=== PATIENT | female | born 1990 | race Caucasian/White ===

== ENCOUNTER 2020-03-02 08:51 | Emergency (ER) | payer SELFPAY ==
[2020-03-02 10:20] LABS: ABSOLUTE BASOPHILS # (AUTO) 0.1 10^3/uL (0.0-0.2); ABSOLUTE EOSINOPHILS # (AUTO) 0.2 10^3/uL (0.0-0.6); ABSOLUTE LYMPHOCYTES (AUTO) 2.2 10^3/uL (0.5-4.7); ABSOLUTE MONOCYTES (AUTO) 0.7 10^3/uL (0.1-1.4); ABSOLUTE NEUT (AUTO) 7.8 10^3/uL (1.7-8.2); BASOPHILS % (AUTO) 0.9 % (0-2); EOSINOPHILS % (AUTO) 1.7 % (0-6); HEMATOCRIT 47.6 % (36.0-47.0); HEMOGLOBIN 16.3 g/dL (12.0-15.5); MEAN CORPUSCULAR HEMOGLOBIN 31.8 pg (27.0-33.4); MEAN CORPUSCULAR HGB CONC 34.3 g/dL (32.0-36.0); MEAN CORPUSCULAR VOLUME 93 fl (80-97); MONOCYTES % (AUTO) 6.3 % (3-13); PLATELET COUNT 277 10^3/uL (150-450); RED BLOOD COUNT 5.13 10^6/uL (3.72-5.28); RED CELL DISTRIBUTION WIDTH 14.1 % (11.5-14.0); SEGMENTED NEUTROPHILS % (AUTO) 71.1 % (42-78); TOTAL CELLS COUNTED % (AUTO) 100 %; WHITE BLOOD COUNT 10.9 10^3/uL (4.0-10.5)
[2020-03-02 10:27] LABS: APPEARANCE,URINE SLIGHTLY-CLOUDY; BILIRUBIN,URINE NEGATIVE (NEGATIVE); COLOR,URINE YELLOW; GLUCOSE, URINE NEGATIVE (NEGATIVE); KETONES,URINE NEGATIVE (NEGATIVE); LEUKOCYTE ESTERASE,URINE MODERATE (NEGATIVE); NITRITE,URINE NEGATIVE (NEGATIVE); PROTEIN,URINE NEGATIVE (NEGATIVE); URINE SPECIFIC GRAVITY 1.025; UROBILINOGEN,URINE NEGATIVE mg/dL (<2.0)
[2020-03-02 10:34] LABS: ALBUMIN 5.1 g/dL (3.5-5.0); ALKALINE PHOSPHATASE 105 U/L (38-126); ANION GAP 13 (5-19); ASPARTATE AMINO TRANSFERASE 27 U/L (14-36); BILIRUBIN,TOTAL 0.7 mg/dL (0.2-1.3); BLOOD UREA NITROGEN 13 mg/dL (7-20); CALCIUM 10.3 mg/dL (8.4-10.2); CARBON DIOXIDE 24 mmol/L (22-30); CHLORIDE 102 mmol/L (98-107); GLUCOSE 122 mg/dL (75-110); POTASSIUM 4.5 mmol/L (3.6-5.0); TOTAL PROTEIN 8.6 g/dL (6.3-8.2)
[2020-03-02] MEDS ORDERED: DICYCLOMINE HCL INJ 20 MG/2 ML AMPULE IM ONE (10:43)
[2020-03-02] MEDS ORDERED: ONDANSETRON HCL INJ/PF 4 MG/2 ML SDV IV ONE (10:43)
[2020-03-02] MEDS ORDERED: NORMAL SALINE 1000 ML 1,000 ML IV ONE (10:43)
[2020-03-02] MEDS ORDERED: CLONIDINE HCL 0.1 MG TABLET PO ONE ×2 (10:44→11:11)
[2020-03-02] MEDS ORDERED: KETOROLAC TROMETHAMINE INJ/PF 30 MG/1 ML SDV IV ONE (11:14)
[2020-03-02] MEDS ORDERED: HALOPERIDOL LACTATE INJ 5 MG/1 ML VIAL IM ONE (12:41)
--- NOTE | 2020-03-02 14:41 | ER Document Report ---
Entered by ROHIT WILDER SCRIBE 03/02/20 1249 Acting as scribe for:COURTNEY SIEGEL MD ED General - General Chief Complaint: Abdominal Pain Stated Complaint: VOMITING,NAUSEA Time Seen by Provider: 03/02/20 09:47 Information source: Patient Notes: This 29 year old female patient presents to the emergency department today with complaints of abdominal pain. Patient states she just moved here from [place]. Patient states she takes x80 mg of percocet daily on average, and the last time she had any percocet was x2 days ago. Patient reports abdominal pain, nausea, and diarrhea. Denies fever, chills, cough, or sore throat. - Related Data Allergies/Adverse Reactions: No Known Allergies Allergy (Verified 03/02/20 10:43) Past Medical History - General Information source: Patient - Social History Smoking Status: Current Every Day Smoker Cigarette use (# per day): Yes Frequency of alcohol use: Occasional Drug Abuse: Prescription drugs Family History: Reviewed & Not Pertinent Patient has homicidal ideation: No Psychiatric Medical History: Reports: Hx Bipolar Disorder Review of Systems - Review of Systems Constitutional: See HPI. denies: Chills, Fever EENT: See HPI. denies: Throat pain Cardiovascular: No symptoms reported Respiratory: See HPI. denies: Cough Gastrointestinal: See HPI, Abdominal pain, Diarrhea, Nausea Genitourinary: No symptoms reported Female Genitourinary: No symptoms reported Musculoskeletal: No symptoms reported Skin: No symptoms reported Hematologic/Lymphatic: No symptoms reported Neurological/Psychological: No symptoms reported -: Yes All other systems reviewed and negative Physical Exam - Vital signs Vitals: Temp Pulse Resp BP Pulse Ox 98.3 F 67 24 H 169/93 H 99 03/02/20 08:57 03/02/20 08:57 03/02/20 08:57 03/02/20 08:57 03/02/20 08:57 - General General appearance: Alert, Other - Oriented - HEENT Head: Normocephalic, Atraumatic Eyes: Normal Pupils: PERRL - Respiratory Respiratory status: No respiratory distress Chest status: Nontender Breath sounds: Normal Chest palpation: Normal - Cardiovascular Rhythm: Regular Heart sounds: Normal auscultation, S1 appreciated, S2 appreciated Murmur: No - Abdominal Inspection: Obese Distension: No distension Bowel sounds: Normal Tenderness: Nontender. No: Rebound - Extremities General upper extremity: Normal inspection. No: Edema General lower extremity: Normal inspection. No: Edema - Neurological Neuro grossly intact: Yes Cognition: Normal Orientation: AAOx4 Speech: Normal - Psychological Associated symptoms: Angry, Other - Crying - Skin Skin Temperature: Warm Skin Moisture: Dry Skin Color: Normal Course - Re-evaluation Re-evalutation: 03/02/20 14:21 Patient appearing less agitated at this time. Patient has received Haldol and seemed to be less agitated and less aggressive with pacing and complaining of pain. 03/02/20 14:23 Patient was tested for COVID 19 virus. Patient was tested because of her recent travel from [place] to [place] in this pandemic environment. Patient reports no known COVID-19 exposure no test in the past. Patient explained that she should self quarantine herself until she has results of this test today these test results should be available within 4 days. Patient is explained to self quarantine until she hears her test results. Should the test be negative herself quarantine is completed and should her test be positive she is to continue for a full 14-day quarantine. Provided patient is symptom-free she can then discontinue her quarantine. 03/02/20 14:25 Patient has been evaluated by the mental health team and patient is being referred to detox/substance abuse resource programs in the community. Patient will be placed on a few days of heroin detox medications to assist her in her absence of narcotics at this time. - Vital Signs Vital signs: Temp Pulse Resp BP Pulse Ox 98.3 F 67 24 H 169/93 H 99 03/02/20 09:30 03/02/20 08:57 03/02/20 08:57 03/02/20 08:57 03/02/20 08:57 03/02/20 14:22 Vital signs improved - Laboratory Result Diagrams: 03/02/20 10:00 03/02/20 10:00 Laboratory results interpreted by me: 03/02/20 03/02/20 03/02/20 10:00 10:00 10:00 WBC 10.9 H Hgb 16.3 H Hct 47.6 H RDW 14.1 H Glucose 122 H Calcium 10.3 H Total Protein 8.6 H Albumin 5.1 H Ur Leukocyte Esterase MODERATE H 03/02/20 14:22 Laboratories with moderate leukocyte esterase on urinalysis glucose of 122 and a mildly elevated laboratories noted consistent with dehydration. 03/02/20 14:25 There is nitrite negative and no bacteria seen in the urinalysis. Discharge - Discharge Clinical Impression: Narcotic withdrawal, Encounter for laboratory testing for COVID-19 virus Condition: Stable Disposition: HOME, SELF-CARE Instructions: Abdominal Pain ([facility]) Additional Instructions: Pain Management Dr. Omer Ju[address] [place], [place] pain Control without Medication Stress, inactivity, and depression make pain more severe, no matter the cause of the pain. Stress and poor physical condition can cause pain such as headaches and backache. Relaxation: Rest in a quiet place with your eyes closed for 20 minutes twice daily. Concentrate on a pleasant image, or simply "feel" your breathing. Clear your mind. Stress management: DEAL with your "stressors." Either take action, or eliminate the stressor from your life. Don't let things hang over you. Accept those things you can't change. Nutrition: Eat small, balanced meals; don't skip, don't overeat. Meals should be high-carbohydrate, low-sugar, low-fat. Exercise: Exercise helps painful conditions and eases stress. Get 30 minutes of moderate exercise, five days a week. Precautions: Pain that continues to disrupt daily activities, or which changes in nature, requires a medical evaluation. You are given a list of detox/substance abuse voluntary programs that you may enroll with also there is detox facilities also listed for you and long-term recovery programs. Hopefully you will find a resource that you can join and improve on your current condition of being out of your Percocet medication as you go through this withdrawal. You have been given medications to assist you in this process and prescriptions have been sent to your pharmacy of choice at [facility] on [facility]. Also you were tested today for COVID 19 virus inasmuch as you have travel over state lines in this pandemic era. Should your test results being negative you are to then discontinue use of quarantine that started today should your test results come back positive and you are to continue your quarantine for total of 14 days. It would be alvarez for you to continue your 14-day self quarantine inasmuch as you have just traveled a great distance to get to [place]. And is highly recommended. Please return to the emergency department should you have further problems. Prescriptions: Diphenhydramine HCl [Benadryl] 50 mg PO DAILY 3 Days #10 capsule Dicyclomine HCl [Bentyl 20 mg Tablet] 20 mg PO BID PRN #5 tablet PRN Reason: Abdominal Cramping Haloperidol [Haldol 5 mg Tablet] 5 mg PO BID 3 Days #5 tablet Ibuprofen [Motrin 800 mg Tablet] 800 mg PO Q8H PRN #30 tab PRN Reason: Promethazine HCl 25 mg PO TID PRN #14 tablet PRN Reason: nausea I personally performed the services described in the documentation, reviewed and edited the documentation which was dictated to the scribe in my presence, and it accurately records my words and actions.
[2020-03-02 14:55] VITALS: BP 130/70
--- NOTE | 2020-03-02 15:19 | PSYCHOLOGICAL NOTE ---
Psych Note - Psych Note Date seen by psych provider: 03/02/20 Time seen by psych provider: 12:35 Psych Note: Reason for Consult: Substance abuse Impression/Plan: Patient is cleared from acute psychiatric services. Dr. Sheth was consulted on the care and management of this patient; attending physician is in agreement with recommendations and disposition.
== END 2020-03-02 14:56 | disposition home or self-care (01) ==
LOC: ER 08:51
DX: F19.239 Other psychoactive substance dependence with withdrawal, unspecified (principal); R10.9 Unspecified abdominal pain; R11.2 Nausea with vomiting, unspecified; R19.7 Diarrhea, unspecified; F17.210 Nicotine dependence, cigarettes, uncomplicated; Z20.828 Contact with and (suspected) exposure to other viral communicable diseases
CPT/HCPCS: 99284; 96372; 96361; 96374; 96375; 36415; 83690; 85025; 87635; 81025; 80053; 81001; J0500; J1630; J1885; J2405; J7030; C9803